=== PATIENT | male | born 2000 | race African-American/Black ===

== ENCOUNTER 2022-08-25 19:47 | Emergency (ER) | payer OTHER ==
[~2022-08-25] VITALS: Ht 167.6 cm; Wt 72.7 kg
[2022-08-25 20:13] VITALS: BP 150/85
== END 2022-08-25 23:00 | disposition left against medical advice (07) ==
LOC: EMS 19:52
DX: I10 Essential (primary) hypertension (principal); R51.9 Headache, unspecified; Z53.21 Procedure and treatment not carried out due to patient leaving prior to being seen by health care provider

== ENCOUNTER 2022-11-05 15:39 | Emergency (ER) | payer OTHER ==
[~2022-11-05] VITALS: Ht 170.2 cm; Wt 75.0 kg
[2022-11-05 16:21] VITALS: BP 134/64
[2022-11-05] MEDS ORDERED: DOXY-354 PO (17:04)
[2022-11-05] MEDS ORDERED: AZITHROMYCIN 500 MG TABLET PO ONE (17:15)
[2022-11-05] MEDS ORDERED: CefTRIAXone SODIUM 1 GM/VIAL IM ONE (17:15)
[2022-11-05] MEDS ORDERED: LIDOCAINE/PF 1% 2 ML VIAL IM ONE (17:15)
== END 2022-11-05 17:42 | disposition home or self-care (01) ==
LOC: EMS 15:39
DX: N34.2 Other urethritis (principal); G43.909 Migraine, unspecified, not intractable, without status migrainosus
CPT/HCPCS: 99283; 96372; J0696; J3490; Q9967

== ENCOUNTER 2023-01-12 14:31 | Emergency (ER) | payer OTHER ==
[~2023-01-12] VITALS: Ht 167.6 cm; Wt 77.3 kg
[~2023-01-12 14:31] MED LIST: DOXY-354 PO
[2023-01-12 14:33] VITALS: TEMP 99.2
[2023-01-12] MEDS ORDERED: ACET-2080 PO (15:34)
[2023-01-12] MEDS ORDERED: IBUP-1554 PO (15:34)
[2023-01-12] MEDS ORDERED: GUAIFDM PO (15:34)
[2023-01-12] MEDS ORDERED: PSEU-191 PO (15:34)
[2023-01-12 15:45] VITALS: BP 154/84; PULSE 71; RESP 19
== END 2023-01-12 16:10 | disposition home or self-care (01) ==
LOC: EMS 14:42
DX: J02.8 Acute pharyngitis due to other specified organisms (principal); G43.909 Migraine, unspecified, not intractable, without status migrainosus; J32.9 Chronic sinusitis, unspecified
CPT/HCPCS: 99282; 99283

== ENCOUNTER 2023-03-19 14:09 | Emergency (ER) | payer OTHER ==
[~2023-03-19] VITALS: Ht 167.6 cm; Wt 77.3 kg
[~2023-03-19 14:09] MED LIST changes: +ACET-2080 PO; +GUAIFDM PO; +IBUP-1554 PO; +PSEU-191 PO
[2023-03-19 14:31] LABS: COVID AG,FIA SOURCE NASAL SWAB
[2023-03-19 15:02] LABS: INFLUENZA TYPE A NEGATIVE FOR TYPE A (NEGATIVE); INFLUENZA TYPE B NEGATIVE FOR TYPE B (NEGATIVE)
[2023-03-19] MEDS ORDERED: ACETAMINOPHEN 325 MG TABLET PO ONE (16:00)
[2023-03-19] MEDS ORDERED: NIRM1TAB4 PO (16:11)
[2023-03-19 16:30] VITALS: BP 127/76; PULSE 97; RESP 16; TEMP 100.4
== END 2023-03-19 18:31 | disposition home or self-care (01) ==
LOC: EMS 14:21
DX: U07.1 COVID-19 (principal); G43.909 Migraine, unspecified, not intractable, without status migrainosus
CPT/HCPCS: 71045; 87804; 99284

== ENCOUNTER 2023-07-01 19:01 | Emergency (ER) | payer OTHER ==
[~2023-07-01] VITALS: Ht 167.6 cm; Wt 75.0 kg
[~2023-07-01 19:01] MED LIST changes: -ACET-2080 PO; -DOXY-354 PO; -GUAIFDM PO; -IBUP-1554 PO; +NIRM1TAB4 PO; -PSEU-191 PO
[2023-07-01 21:00] VITALS: BP 132/75; PULSE 74; RESP 16; TEMP 98.3
[2023-07-01] MEDS ORDERED: VALA500T42 PO (21:00)
[2023-07-01] MEDS ORDERED: BACI28.410 TP (21:00)
== END 2023-07-01 21:56 | disposition home or self-care (01) ==
LOC: EMS 19:07
DX: S30.812A Abrasion of penis, initial encounter (principal); B00.9 Herpesviral infection, unspecified; N48.29 Other inflammatory disorders of penis; G43.909 Migraine, unspecified, not intractable, without status migrainosus; Z88.0 Allergy status to penicillin; Z88.8 Allergy status to other drugs, medicaments and biological substances; X58.XXXA Exposure to other specified factors, initial encounter; Y93.89 Activity, other specified; Y92.89 Other specified places as the place of occurrence of the external cause; Y99.8 Other external cause status
CPT/HCPCS: 99283; Z7502

== ENCOUNTER 2024-03-23 08:31 | Emergency (ER) | payer OTHER ==
[~2024-03-23] VITALS: Ht 170.2 cm; Wt 72.7 kg
[~2024-03-23 08:31] MED LIST changes: +BACI28.410 TP; +VALA500T42 PO
[2024-03-23 08:49] VITALS: TEMP 98.1
[2024-03-23 09:54] LABS: BASOPHILS % (AUTO) 0.5 % (0.0-2.0); EOSINOPHILS % (AUTO) 3.3 % (1.0-6.0); HEMATOCRIT 46.3 % (41-53); HEMOGLOBIN 14.9 g/dL (13.5-17.5); LYMPHOCYTES # (AUTO) 1.1 K/uL (1.0-4.8); LYMPHOCYTES % (AUTO) 19.6 % (22.0-44.0); MEAN CORPUSCULAR HEMOGLOBIN 28.9 pg (26.0-34.0); MEAN CORPUSCULAR HGB CONC 32.2 G/dL (31.0-37.0); MEAN CORPUSCULAR VOLUME 90 fL (80-100); MONOCYTES # (AUTO) 0.3 K/uL (0.1-1.0); MONOCYTES % (AUTO) 6.1 % (2.0-9.0); NEUTROPHILS % (AUTO) 70.5 % (40.0-70.0); PLATELET COUNT (AUTO) 260 K/uL (150-450); RED BLOOD CELL COUNT(AUTO) 5.16 MIL/uL (4.50-5.90); RED CELL DISTRIBUTION WIDTH 14.1 % (11.5-14.5); WHITE BLOOD COUNT (AUTO) 5.7 K/uL (4.5-11.0)
[2024-03-23 09:58] LABS: ANION GAP 7 mmol/L (8-16); CARBON DIOXIDE 30 mmol/L (22-29); CHLORIDE 99 mmol/L (98-107); CREATININE 1.09 mg/dL (0.60-1.30); GLOMERULAR FILTR. RATE CALC > 60 mL/min (>60); GLUCOSE,RANDOM 138 mg/dL (70-110); LIPASE 32 U/L (16-77); POTASSIUM 4.2 mmol/L (3.5-5.1); SODIUM SERUM 136 mmol/L (136-145); UREA NITROGEN, BLOOD 11 mg/dL (7-18)
[2024-03-23] MEDS: SODIUM CHLORIDE 0.9% 1,000 ML IV ONE (15:00)
[2024-03-23] MEDS: METOCLOPRAMIDE HCL 5 MG/ML 2 ML VIAL IVP ONE (15:00)
[2024-03-23] MEDS: DiphenhydrAMINE HCL 50 MG/ML VIAL IVP ONE (15:01)
[2024-03-23] MEDS: KETOROLAC TROMETHAMINE 30 MG/ML VIAL IVP ONE (15:02)
[2024-03-23 15:04] VITALS: BP 133/80; PULSE 72; RESP 18; O2SAT 99
[2024-03-23 15:42] LABS: APPEARANCE,URINE CLEAR (CLEAR); BILIRUBIN,URINE NEGATIVE (NEGATIVE); COLOR,URINE LIGHT YELLOW (YELLOW); GLUCOSE, URINE (UA) NEGATIVE (NEGATIVE); KETONES,URINE NEGATIVE (NEGATIVE); NITRATE,URINE NEGATIVE (NEGATIVE); OCCULT BLOOD,URINE NEGATIVE (NEGATIVE); PROTEIN,URINE NEGATIVE (NEGATIVE); UROBILINOGEN,URINE <=1.0 mg/dL (<=1.0)
[2024-03-23 15:49] LABS: LEUKOCYTE ESTERASE ,URINE NEGATIVE (NEGATIVE)
== END 2024-03-23 19:17 | disposition left against medical advice (07) ==
LOC: EMS 08:31
DX: G43.909 Migraine, unspecified, not intractable, without status migrainosus (principal); Z88.0 Allergy status to penicillin; Z88.8 Allergy status to other drugs, medicaments and biological substances
CPT/HCPCS: 99284; 96374; 96375; 96361; 80048; 81003; 83690; 85025; 36415; J1200; J1885; J2765; J7030